=== PATIENT | female | born 1960 | race Caucasian/White ===

== ENCOUNTER 2022-05-23 17:23 | Emergency (ER) | payer MEDICAID, SELFPAY ==
--- NOTE | 2022-05-23 17:23 | W.ED.FALL ---
HPI - Fall General: Chief Complaint: Fall Stated Complaint: FALL Time Seen by Provider: 05/23/22 17:23 History of Present Illness: Ms. Tracey is a 61-year-old lady with complex past medical history presenting to the emergency department for fall with knee pain. She reports over the past number of weeks she has had increased bilateral upper and lower extremity weakness and stiffness. She does have a history of neck injury and has had surgery before. She was seen elsewhere and x-rays revealed a slipped disc . She was in her bathroom today when her leg on the left gave out and she fell to the ground. Denies loss of consciousness or head strike. She does endorse neck pain and left knee pain. She was on the ground for an hour or so. Intensity symptoms is moderate. No other specific changes in health, exacerbating, or alleviating factors identified. Onset (ago): minute(s) Fall from: standing Loss of consciousness: None Prolonged down time: no Context: other Location of injury: neck Location of injury - extremities: Left: knee Severity: moderate Quality: sharp and aching Review of Systems General: Reports: 10 or more systems reviewed and unremarkable except in HPI and below PFSH ED PFSH: Medical History Fall Generalized weakness Physical Exam Const: COMMON NORMALS: alert GENERAL APPEARANCE: cooperative and well developed HENMT: COMMON NORMALS: normocephalic and atraumatic HEAD & SCALP: normocephalic and atraumatic THROAT: posterior oropharynx normal OTHER: No roach signs or raccoon eyes. No hemotympanum. No otorrhea or rhinorrhea. Jaw alignment normal. Dentition baseline. No obvious bony step-offs. No septal hematoma. No evidence of ocular entrapment. Eye: COMMON NORMALS: conjunctivae normal CONJUNCTIVA: Yes conjunctivae normal SCLERA: sclerae normal Neck/C-Spine: COMMON NORMALS: supple GENERAL: Yes trachea midline OTHER: Mostly paraspinal tenderness to palpation. Resp: COMMON NORMALS: clear to auscultation bilaterally EFFORT & INSPECTION: Yes able to speak in complete sentences AUSCULTATION: clear to auscultation bilaterally Cardio: COMMON NORMALS: regular rate and regular rhythm RATE: regular rate RHYTHM: regular rhythm GI: COMMON NORMALS: Soft to palpation PALPATION: Yes Soft to palpation and No Tenderness to palpation present (GI) Extremity: NARRATIVE EXTREMITY EXAM: Left knee tender to palpation, no obvious deformity, CMS intact. GENERAL: Yes normal exam except as noted and No edema Neuro: COMMON NORMALS: moves all extremities SENSORIUM/ORIENTATION: Yes alert and No Orientation impaired Psych: COMMON NORMALS: mental status grossly normal and Normal thought process present THOUGHT PROCESS: Normal thought process present Course Vital Signs: Vital signs: Vital Signs Temperature 98.2 F 05/23/22 17:29 Pulse Rate 89 05/23/22 21:11 Respiratory Rate 20 H 05/23/22 21:11 Blood Pressure 154/87 05/23/22 21:11 Pulse Oximetry 98 05/23/22 21:11 Oxygen Delivery Me thod 05/23/22 17:29 MDM - Fall Medical Decision Making 61-year-old lady presenting with fall. Exam as above. Head to toe exam performed. Labs notable for no significant hematologic or metabolic abnormality to explain patient's generalized symptoms. CT and x-ray imaging are negative for acute pathology. Incidental findings were discussed with patient. Patient improved with analgesia administered during ED course. Most likely etiology of patient's symptoms is soft tissue injury secondary to fall with generalized weakness of unclear etiology. The results of ED evaluation were discussed with the patient including prescriptions and/or symptomatic cares (if applicable) including appropriate and responsible use, followup plan, and return precautions. The patient verbalized understanding and felt safe for discharge. Medical Records I reviewed the patient's medical records. Lab Data I reviewed the patient's lab results. 05/23/22 18:50 05/23/22 18:50 Radiology Impressions Cervical Spine CT 05/23/22 17:34 IMPRESSION: 1. No acute cervical spinal fracture. 2. C5-C6 anterior cervical spinal fusion changes. Degenerative changes with at least moderate spinal canal stenosis C4-C5 above the fusion which can be better characterized by MRI for follow-up. Head CT 05/23/22 17:34 IMPRESSION: No acute intracranial abnormality. Hip/Pelvis X-Ray 05/23/22 17:34 IMPRESSION: Degenerative changes. No acute injury. Knee X-Ray 05/23/22 17:34 IMPRESSION: 1. Degenerative changes. No acute injury. 2. Moderate knee joint effusion. Laboratory Results WBC 9.2 10^3/uL (4.0-10.0) 05/23/22 18:50 RBC 4.95 10^6/uL (4.1-5.3) 05/23/22 18:50 Hgb 13.3 g/dL (11.5-15.3) 05/23/22 18:50 Hct 43.8 % (37.0-47.0) 05/23/22 18:50 MCV 88.5 fl (81-99) 05/23/22 18:50 MCH 26.9 pg (28.0-34.0) L 05/23/22 18:50 MCHC 30.4 g/dL (30.0-36.0) 05/23/22 18:50 RDW 16.3 % (12.1-15.1) H 05/23/22 18:50 Plt Count 206 10^3/cmm (130-400) 05/23/22 18:50 MPV 11.0 fL (7.4-10.4) H 05/23/22 18:50 Neut % (Auto) 72.7 % 05/23/22 18:50 Lymph % (Auto) 15.9 % 05/23/22 18:50 Gall[place] % (Auto) 7.3 % 05/23/22 18:50 Eos % (Auto) 2.9 % 05/23/22 18:50 Baso % (Auto) 0.7 % 05/23/22 18:50 Neut # (Auto) 6.67 10^3/uL (1.8-7.7) 05/23/22 18:50 Lymph # (Auto) 1.5 10^3/uL (0.8-4.8) 05/23/22 18:50 [place] # (Auto) 0.7 10^3/uL (0.2-0.9) 05/23/22 18:50 Eos # (Auto) 0.3 10^3/uL (0.0-0.8) 05/23/22 18:50 Baso # (Auto) 0.1 10^3/uL (0.0-0.1) 05/23/22 18:50 Nucleated RBC % (auto) 0 % 05/23/22 18:50 Nucleated RBCs # 0.0 /100WBC 05/23/22 18:50 Sodium 142 mmol/L (136-145) 05/23/22 18:50 Potassium 4.9 mmol/L (3.5-5.1) 05/23/22 18:50 Chloride 104 mmol/L (98-107) 05/23/22 18:50 Carbon Dioxide 27 mmol/L (22-29) 05/23/22 18:50 Anion Gap 15.9 (5-19) 05/23/22 18:50 BUN 21 mg/dL (8-23) 05/23/22 18:50 Creatinine 0.9 mg/dL (0.5-0.9) 05/23/22 18:50 GFR Calculation 63.2 mL/min (90-130) L 05/23/22 18:50 Glucose 87 mg/dL (65-115) 05/23/22 18:50 Calculated Osmolality 296 mOsm/kg (285-295) H 05/23/22 18:50 Calcium 9.4 mg/dL (8.5-10.5) 05/23/22 18:50 Total Bilirubin 0.4 mg/dL (0.15-1.2) 05/23/22 18:50 AST 18 U/L (0-32) 05/23/22 18:50 ALT 19 U/L (0-33) 05/23/22 18:50 Alkaline Phosphatase 85 U/L (35-105) 05/23/22 18:50 Creatine Kinase 169 U/L (26-192) 05/23/22 18:50 Total Protein 7.4 g/dL (6.6-8.7) 05/23/22 18:50 Albumin 4.2 g/dL (3.5-5.2) 05/23/22 18:50 Globulin 3.2 g/dL (1.3-4.6) 05/23/22 18:50 Discharge Plan Discharge Patient Disposition: Home Clinical Impression: Fall, Knee joint pain, Generalized weakness Condition: Stable Prescriptions: New oxycodone 5 mg tablet 5 mg PO Q4H PRN (Reason: pain) Qty: 10 0RF No Action clonazepam 0.5 mg tablet 0.25 mg PO BID levothyroxine 75 mcg capsule 75 mcg PO DAILY escitalopram oxalate 10 mg tablet 10 mg PO DAILY meloxicam 7.5 mg tablet 7.5 mg PO DAILY aspirin [Adult Aspirin Regimen] 81 mg tablet,delayed release (DR/EC) 81 mg PO DAILY spironolactone 50 mg tablet 50 mg PO DAILY loratadine [Allergy Relief (loratadine)] 10 mg tablet 10 mg PO DAILY omeprazole 20 mg capsule,delayed release(DR/EC) 20 mg PO DAILY bupropion HCl 150 mg tablet extended release 24 hr 150 mg PO QAM Discharge Orders: Discharge ED (Routine); Ordered 05/23/22 Ordered By: Chema Ovalles Discharge Diet: Usual diet Discharge Activity: Resume usual activity Patient Instructions: Weakness (ED), Knee Pain (ED), Fall Prevention (ED), Opioid Safety Activity Restrictions/Additional Instructions: Thank you for visiting the emergency department. You were seen and evaluated for fall with knee pain. No acute internal injury was identified. Please follow-up with your primary care provider. You may use [id number] medications such as acetaminophen and ibuprofen for pain however please do not exceed the daily recommended dosage as listed on the packaging and please keep in mind that many namebrand medications contain the same active ingredients. Please avoid these medications if previously instructed to do so by another physician due to other underlying medical condition. I will prescribe oxycodone for pain uncontrolled by [id number] medications. Use these cautiously as discussed. Return to the emergency department for uncontrolled symptoms or anything else that you are concerned about and feel needs emergency department evaluation. Coding Level of Care Code ED [employer]
[2022-05-23 17:29] VITALS: BP 102/69; PULSE 70; RESP 19; TEMP 36.8; O2SAT 94; BMI 56.7
--- NOTE | 2022-05-23 17:34 | XRR_ITS ---
PROCEDURE INFORMATION: Exam: XR Left Hip Exam date and time: 05/23/2022 6:06 PM Age: 61 years old Clinical indication: Injury or trauma; Fall; Other: Pain; Additional info: Fall, pain TECHNIQUE: Imaging protocol: Radiologic exam of the left hip. Views: 2 or 3 views hip with pelvis when performed. COMPARISON: No relevant prior studies available. FINDINGS: Bones/joints: Mild joint space narrowing noted in the left hip. No acute fracture or dislocation. Soft tissues: Study limited by body habitus. XR/XR hip LT 2-3V wo/w pel* [id number] IMPRESSION: Degenerative changes. No acute injury.
--- NOTE | 2022-05-23 17:34 | CTR_ITS ---
PROCEDURE INFORMATION: Exam: CT Cervical Spine Without Contrast Exam date and time: 05/23/2022 5:43 PM Age: 61 years old Clinical indication: Injury or trauma; Fall; Blunt trauma; Prior surgery; Surgery type: Plate in c-sp TECHNIQUE: Imaging protocol: Computed tomography of the cervical spine without contrast. Radiation optimization: All CT scans at this facility use at least one of these dose optimization techniques: automated exposure control; mA and/or kV adjustment per patient size (includes targeted exams where dose is matched to clinical indication); or iterative reconstruction. REPORTING DATA: Count of CT and Cardiac NM exams in prior 12 months: This patient has received [address] and 0 known cardiac nuclear medicine studies in the 12 months prior to the current study. COMPARISON: No relevant prior studies available. RADIATION DOSE METRICS: Total DLP (mGy-cm): 728.9 FINDINGS: Bones/joints: Minimal anterolisthesis of C4 on C5 measuring 4 mm. C5-C6 anterior cervical interbody fusion. Multilevel degenerative disc disease is present with at least moderate stenosis of the spinal canal C4-C5 above the fusion. Lungs: Lung apices are normal. Soft tissues: Unremarkable. CT/CT cervical spin wo con* [id number] IMPRESSION: 1. No acute cervical spinal fracture. 2. C5-C6 anterior cervical spinal fusion changes. Degenerative changes with at least moderate spinal canal stenosis C4-C5 above the fusion which can be better characterized by MRI for follow-up.
--- NOTE | 2022-05-23 17:34 | XRR_ITS ---
PROCEDURE INFORMATION: Exam: XR Left Knee Exam date and time: 05/23/2022 5:57 PM Age: 61 years old Clinical indication: Injury or trauma; Fall; Other: Pain; Additional info: Fall, pain TECHNIQUE: Imaging protocol: Radiologic exam of the left knee. Views: 3 views. COMPARISON: No relevant prior studies available. FINDINGS: Bones/joints: Mild medial and patellofemoral compartment joint space narrowing. Moderate-sized knee joint effusion. Anatomic alignment. No acute displaced fracture. Soft tissues: Normal. XR/XR knee LT 3V* [id number] IMPRESSION: 1. Degenerative changes. No acute injury. 2. Moderate knee joint effusion.
--- NOTE | 2022-05-23 17:34 | CTR_ITS ---
PROCEDURE INFORMATION: Exam: CT Head Without Contrast Exam date and time: 05/23/2022 5:43 PM Age: 61 years old Clinical indication: Injury or trauma; Fall; Blunt trauma (contusions or hematomas) TECHNIQUE: Imaging protocol: Computed tomography of the head without contrast. Radiation optimization: All CT scans at this facility use at least one of these dose optimization techniques: automated exposure control; mA and/or kV adjustment per patient size (includes targeted exams where dose is matched to clinical indication); or iterative reconstruction. REPORTING DATA: Count of CT and Cardiac NM exams in prior 12 months: This patient has received [address] and 0 known cardiac nuclear medicine studies in the 12 months prior to the current study. COMPARISON: No relevant prior studies available. RADIATION DOSE METRICS: Total DLP (mGy-cm): 1149.83 FINDINGS: Brain: No acute infarct. No hemorrhage. Involutional changes of the brain, commensurate with age. No mass effect. Cerebral ventricles: No ventriculomegaly. Paranasal sinuses: Visualized sinuses are unremarkable. No fluid levels. Mastoid air cells: Visualized mastoid air cells are well aerated. Bones/joints: Unremarkable. No acute fracture. Soft tissues: Unremarkable. CT/CT head wo con* [id number] IMPRESSION: No acute intracranial abnormality.
[2022-05-23 18:45] VITALS: BP 112/64; PULSE 71; O2SAT 97
[2022-05-23 19:02] LABS: Basophils # 0.1 10^3/uL (0.0-0.1); Basophils % 0.7 %; Eosinophils # 0.3 10^3/uL (0.0-0.8); Eosinophils % 2.9 %; Hematocrit 43.8 % (37.0-47.0); Hemoglobin 13.3 g/dL (11.5-15.3); Lymphocytes # 1.5 10^3/uL (0.8-4.8); Lymphocytes % 15.9 %; Mean Corpuscular HGB Conc 30.4 g/dL (30.0-36.0); Mean Corpuscular Hemoglobin 26.9 pg (28.0-34.0); Mean Corpuscular Volume 88.5 fl (81-99); Monocytes # 0.7 10^3/uL (0.2-0.9); Monocytes % 7.3 %; Neutrophils # 6.67 10^3/uL (1.8-7.7); Neutrophils % 72.7 %; Nucleated Red Blood Cells % 0 %; Platelet Count 206 10^3/cmm (130-400); Red Blood Count 4.95 10^6/uL (4.1-5.3); Red Cell Distribution Width 16.3 % (12.1-15.1); White Blood Count 9.2 10^3/uL (4.0-10.0)
[2022-05-23] MEDS: morphine 4 mg/mL SDV 1 mL IVP (19:17)
[2022-05-23 19:31] LABS: Alanine Aminotransferase 19 U/L (0-33); Albumin Level 4.2 g/dL (3.5-5.2); Alkaline Phosphatase 85 U/L (35-105); Anion Gap 15.9 (5-19); Aspartate Amino Transferase 18 U/L (0-32); Blood Urea Nitrogen 21 mg/dL (8-23); Calcium 9.4 mg/dL (8.5-10.5); Carbon Dioxide 27 mmol/L (22-29); Chloride 104 mmol/L (98-107); Creatine Phosphokinase 169 U/L (26-192); Globulin 3.2 g/dL (1.3-4.6); Glomerular Filtration Rate 63.2 mL/min (90-130); Glucose 87 mg/dL (65-115); Osmolality Calculated 296 mOsm/kg (285-295); Potassium 4.9 mmol/L (3.5-5.1); Sodium 142 mmol/L (136-145); Total Bilirubin 0.4 mg/dL (0.15-1.2); Total Protein 7.4 g/dL (6.6-8.7)
[2022-05-23 21:11] VITALS: BP 154/87; PULSE 89; RESP 20; O2SAT 98
== END 2022-05-23 21:12 | disposition home or self-care (01) ==
PROVIDERS: Emergency Provider Emergency Medicine; PCP Family Medicine
DX: R53.1 Weakness (principal); M25.562 Pain in left knee; Z79.82 Long term (current) use of aspirin; W18.39XA Other fall on same level, initial encounter
CPT/HCPCS: 36415; 70450; 72125; 73502; 73562; 80053; 82550; 85025; 96374; 99285; J2270

== ENCOUNTER 2023-11-17 12:59 | Emergency (ER) | payer MEDICAID, SELFPAY ==
[2023-11-17 13:02] VITALS: BP 158/104; PULSE 82; RESP 18; TEMP 37; O2SAT 92; BMI 54.8
--- NOTE | 2023-11-17 13:09 | XR_ITS ---
WS: [id number] LEFT TIBIA-FIBULA 2 VIEWS HISTORY: wound COMPARISON: None available. No fracture, dislocation or joint abnormality. Mild soft tissue edema surrounding the lower extremity. No pockets of air identified. XR/XR tibia fibula LT 2V [id number] IMPRESSION: Mild diffuse soft tissue edema LEFT lower extremity. No fracture.
--- NOTE | 2023-11-17 13:11 | ED_ITS ---
HPI - General Adult 2 General: Chief complaint: Wound/Laceration Stated complaint: left leg pressure ulcer Time Seen by Provider: 11/17/23 13:01 Source: patient and EMS Mode of arrival: EMS Limitations: no limitations History of Present Illness: 62-year-old female states she been havin g a chronic wound to her left lower leg it has been there for roughly a year she states it had not improved after last round of antibiotics a few months ago states she has put some hydrogen peroxide on it and it seems to be worse. She states she had some slight increased erythema and drainage she denies any fever has minimal pain. Associated symptoms: Deny chest pain, dyspnea, headache(s), nausea, rash or vomiting Related Data Home Medications Medication Instructions Recorded Confirmed aspirin 81 mg tablet,delayed 81 mg PO DAILY 05/12/22 05/12/22 release (Adult Aspirin Regimen) bupropion HCl 150 mg 24 hr tablet, 150 mg PO QAM 05/12/22 05/12/22 extended release clonazepam 0.5 mg tablet 0.25 mg PO BID 05/12/22 05/12/22 escitalopram oxalate 10 mg tablet 10 mg PO DAILY 05/12/22 05/12/22 levothyroxine 75 mcg capsule 75 mcg PO DAILY 05/12/22 05/12/22 loratadine 10 mg tablet (Allergy 10 mg PO DAILY 05/12/22 05/12/22 Relief (loratadine)) meloxicam 7.5 mg tablet 7.5 mg PO DAILY 05/12/22 05/12/22 omeprazole 20 mg capsule,delayed 20 mg PO DAILY 05/12/22 05/12/22 release spironolactone 50 mg tablet 50 mg PO DAILY 05/12/22 05/12/22 Previous Rx's Medication Instructions Recorded oxycodone 5 mg tablet 5 mg PO Q4H PRN pain #10 tabs 05/23/22 clindamycin HCl 300 mg capsule 300 mg PO Q8H 7 days #21 caps 11/17/23 Allergies Allergy/AdvReac Type Severity Reaction Status Date / Time diazepam [From Valium] Allergy ADR/ALGY-Hy Verified 05/12/22 15:22 potension Influenza Virus Vaccines Allergy Unknown Verified 05/23/22 19:20 Penicillins Allergy ALGY-Hives Verified 05/12/22 15:22 tetanus toxoid, adsorbed Allergy Unknown Verified 05/23/22 19:20 tramadol Allergy Unknown Verified 05/23/22 19:20 Review of Systems 2 Const: Denies: fever(s), chills, body aches or change in appetite ENMT: Denies: throat pain or dental pain Card: Denies: chest pain Resp: Denies: dyspnea GI: Denies: abdominal pain, nausea, vomiting or diarrhea Musc: Denies: neck pain or back pain Skin/Breast: Reports: erythema; Denies: rash Neuro: Denies: headache(s) PFSH ED 2 PFSH: Medical History Generalized weakness Fall Physical Exam 2 Const: COMMON NORMALS: no acute distress, patient oriented x3 and healthy appearing HENMT: COMMON NORMALS: normocephalic and atraumatic HEAD & SCALP: n ormocephalic and atraumatic Neck/C-Spine: COMMON NORMALS: full ROM and supple Chest: COMMONS NORMALS: normal inspection of the chest Resp: COMMON NORMALS: normal respiratory effort Cardio: COMMON NORMALS: regular rate, regular rhythm and No murmurs present (Cardio) RATE: regular rate RHYTHM: regular rhythm Extremity: NARRATIVE EXTREMITY EXAM: Roughly 3 cm in her superficial wound to the left lower leg with slight erythema no drainage at this time Neuro: COMMON NORMALS: patient oriented x3, moves all extremities and no focal motor deficits Psych: COMMON NORMALS: mental status grossly normal, Normal thought process present and cooperative THOUGHT PROCESS: Normal thought process present Skin: COMMON NORMALS: no rashes or lesions noted and no wounds GENERAL SKIN EXAM: no rashes or lesions noted Course 2 Vital Signs: Vital signs: Vital Signs Temperature 98.6 F 11/17/23 13:02 Pulse Rate 71 11/17/23 13:53 Respiratory Rate 18 11/17/23 13:02 Blood Pressure 158/104 11/17/23 13:53 Pulse Oximetry 93 11/17/23 13:53 Oxygen Delivery Me thod Room Air 11/17/23 13:53 MDM - General Adult Medical Decision Making Patient presents for superficial ulcer to left lower leg with some mild cellulitis no signs of necrotizing fasciitis we will start patient on clindamycin we will get her follow-up with wound care she is return if worsening she understands agrees with plan Medical Records I reviewed the patient's medical records. Lab Data I reviewed the patient's lab results. 11/17/23 13:28 11/17/23 13:28 Radiology Impressions Tibia/Fibula X-Ray 11/17/23 13:09 IMPRESSION: Mild diffuse soft tissue edema LEFT lower extremity. No fracture. Laboratory Results WBC 8.13 10^3/uL (3.29-11.43) 11/17/23 13:28 RBC 4.27 10^6/uL (3.85-5.65) 11/17/23 13:28 Hgb 11.90 g/dL (11.27-16.99) 11/17/23 13:28 Hct 38.8 % (36-47) 11/17/23 13:28 MCV 90.9 fl (85-98) 11/17/23 13:28 MCH 27.9 pg (27-33) 11/17/23 13:28 MCHC 30.7 g/dL (30-55) 11/17/23 13:28 RDW 15.6 % (12.1-15.1) H 11/17/23 13:28 Plt Count 175 10^3/cmm (157-399) 11/17/23 13:28 MPV 10.9 fL (7.4-10.4) H 11/17/23 13:28 Neut % (Auto) 64.3 % 11/17/23 13:28 Lymph % (Auto) 21.6 % 11/17/23 13:28 [place] % (Auto) 10.3 % 11/17/23 13:28 Eos % (Auto) 2.6 % 11/17/23 13:28 Baso % (Auto) 0.7 % 11/17/23 13:28 Neut # (Auto) 5.22 10^3/uL (1.8-7.7) 11/17/23 13:28 Lymph # (Auto) 1.8 10^3/uL (0.8-4.8) 11/17/23 13:28 [place] # (Auto) 0.8 10^3/uL (0.2-0.9) 11/17/23 13:28 Eos # (Auto) 0.2 10^3/uL (0.0-0.8) 11/17/23 13:28 Baso # (Auto) 0.1 10^3/uL (0.0-0.1) 11/17/23 13:28 Nucleated RBC % (auto) 0 % 11/17/23 13:28 Nucleated RBCs # 0.0 /100WBC 11/17/23 13:28 ESR 46 mm/hr (0-15) H 11/17/23 13:28 Sodium 139 mmol/L (136-145) 11/17/23 13:28 Potassium 4.0 mmol/L (3.5-5.1) 11/17/23 13:28 Chloride 104 mmol/L (98-107) 11/17/23 13:28 Carbon Dioxide 25 mmol/L (22-29) 11/17/23 13:28 Anion Gap 14.0 (5-19) 11/17/23 13:28 BUN 17 mg/dL (8-23) 11/17/23 13:28 Creatinine 1.1 mg/dL (0.5-0.9) H 11/17/23 13:28 GFR Calculation 50.0 mL/min (90-130) L 11/17/23 13:28 Glucose 91 mg/dL (65-115) 11/17/23 13:28 Calculated Osmolality 289 mOsm/kg (285-295) 11/17/23 13:28 Calcium 8.8 mg/dL (8.5-10.5) 11/17/23 13:28 All radiology interpretation(s) finalized by discharge Discharge Plan Discharge Patient Disposition: Home Clinical Impression: Ulcer of left lower extremity, Cellulitis Condition: Stable Prescriptions: New clindamycin HCl 300 mg capsule 300 mg PO Q8H 7 Days Qty: 21 0RF No Action clonazepam 0.5 mg tablet 0.25 mg PO BID levothyroxine 75 mcg capsule 75 mcg PO DAILY escitalopram oxalate 10 mg tablet 10 mg PO DAILY meloxicam 7.5 mg tablet 7.5 mg PO DAILY aspirin [Adult Aspirin Regimen] 81 mg tablet,delayed release (DR/EC) 81 mg PO DAILY spironolactone 50 mg tablet 50 mg PO DAILY loratadine [Allergy Relief (loratadine)] 10 mg tablet 10 mg PO DAILY omeprazole 20 mg capsule,delayed release(DR/EC) 20 mg PO DAILY bupropion HCl 150 mg tablet extended release 24 hr 150 mg PO QAM oxycodone 5 mg tablet 5 mg PO Q4H PRN (Reason: pain) Qty: 10 0RF Discharge Orders: Discharge ED (Routine); Ordered 11/17/23 Ordered By: Kiah Kumar Referrals: Hannah Bueno DO [Primary Care Provider] - [facility], [Staff Physician] - 1-3 days Discharge Diet: Advance as tolerated Discharge Activity: Resume usual activity Patient Instructions: Cellulitis (ED), Acute Wound Care (ED) Coding Level of Care Code ED [employer]
[2023-11-17 13:43] LABS: Basophils # 0.1 10^3/uL (0.0-0.1); Basophils % 0.7 %; Eosinophils # 0.2 10^3/uL (0.0-0.8); Eosinophils % 2.6 %; Hematocrit 38.8 % (36-47); Lymphocytes # 1.8 10^3/uL (0.8-4.8); Lymphocytes % 21.6 %; Mean Corpuscular HGB Conc 30.7 g/dL (30-55); Mean Corpuscular Hemoglobin 27.9 pg (27-33); Mean Corpuscular Volume 90.9 fl (85-98); Mean Platelet Volume 10.9 fL (7.4-10.4); Monocytes # 0.8 10^3/uL (0.2-0.9); Monocytes % 10.3 %; Neutrophils # 5.22 10^3/uL (1.8-7.7); Neutrophils % 64.3 %; Nucleated Red Blood Cells % 0 %; Platelet Count 175 10^3/cmm (157-399); Red Blood Count 4.27 10^6/uL (3.85-5.65); Red Cell Distribution Width 15.6 % (12.1-15.1); White Blood Count 8.13 10^3/uL (3.29-11.43)
[2023-11-17] MEDS: clindamycin 600 MG/50 ML PREMIX 100 MG IV (13:49)
[2023-11-17] MEDS: HYDROcodone-acetaminophen 5-325 mg Tablet 1 TAB PO (13:51)
[2023-11-17 13:52] LABS: Blood Urea Nitrogen 17 mg/dL (8-23); Calcium 8.8 mg/dL (8.5-10.5); Carbon Dioxide 25 mmol/L (22-29); Chloride 104 mmol/L (98-107); Glucose 91 mg/dL (65-115); Osmolality Calculated 289 mOsm/kg (285-295); Sodium 139 mmol/L (136-145)
[2023-11-17 13:53] VITALS: BP 158/104; PULSE 71; O2SAT 93
[2023-11-17 13:53] LABS: Erythrocyte Sedimentation Rate 46 mm/hr (0-15)
[2023-11-17 13:54] LABS: Creatinine Clr Calc Pharmacy 68.9158
--- NOTE | 2023-11-17 15:02 | DCPLANNER ---
messaged wound care for er f/u
[2023-11-17 16:11] VITALS: BP 160/92; PULSE 63; O2SAT 97
== END 2023-11-17 16:12 | disposition home or self-care (01) ==
PROVIDERS: Emergency Provider Emergency Medicine; PCP Family Medicine
DX: L97.821 Non-pressure chronic ulcer of other part of left lower leg limited to breakdown of skin (principal); L03.116 Cellulitis of left lower limb; Z79.82 Long term (current) use of aspirin
CPT/HCPCS: 36415; 73590; 80048; 85025; 85651; 96374; 99284; J3490

== ENCOUNTER → 2023-12-01 13:03 | Outpatient (BNVA) | payer MEDICAID, SELFPAY | PROVIDERS: PCP Family Medicine; Visit Provider Thoracic Surgery (Cardiothoracic Vascular Surgery) | DX: I96 Gangrene, not elsewhere classified (principal); I89.0 Lymphedema, not elsewhere classified; L97.822 Non-pressure chronic ulcer of other part of left lower leg with fat layer exposed | CPT/HCPCS: 11042 ==

== ENCOUNTER → 2023-12-08 10:44 | Outpatient (BNVA) | payer MEDICAID, SELFPAY | PROVIDERS: PCP Family Medicine; Visit Provider Thoracic Surgery (Cardiothoracic Vascular Surgery) | DX: I89.0 Lymphedema, not elsewhere classified (principal); I96 Gangrene, not elsewhere classified; L97.821 Non-pressure chronic ulcer of other part of left lower leg limited to breakdown of skin | CPT/HCPCS: 97597; 97598 ==

== ENCOUNTER → 2023-12-15 09:49 | Outpatient (BNVA) | payer MEDICAID, SELFPAY | PROVIDERS: PCP Family Medicine; Visit Provider Thoracic Surgery (Cardiothoracic Vascular Surgery) | DX: I96 Gangrene, not elsewhere classified (principal); I89.0 Lymphedema, not elsewhere classified; L97.821 Non-pressure chronic ulcer of other part of left lower leg limited to breakdown of skin | CPT/HCPCS: 97597; 97598 ==

== ENCOUNTER → 2023-12-22 10:09 | Outpatient (BNVA) | payer MEDICAID, SELFPAY | PROVIDERS: PCP Family Medicine; Visit Provider Thoracic Surgery (Cardiothoracic Vascular Surgery) | DX: I96 Gangrene, not elsewhere classified (principal); I89.0 Lymphedema, not elsewhere classified; L97.821 Non-pressure chronic ulcer of other part of left lower leg limited to breakdown of skin | CPT/HCPCS: 97597; 97598; 97605; A6237; A6250 ==

== ENCOUNTER → 2023-12-25 11:09 | Outpatient (BNVA) | payer MEDICAID, SELFPAY | PROVIDERS: PCP Family Medicine; Visit Provider Thoracic Surgery (Cardiothoracic Vascular Surgery) | DX: I96 Gangrene, not elsewhere classified (principal); I89.0 Lymphedema, not elsewhere classified; L97.821 Non-pressure chronic ulcer of other part of left lower leg limited to breakdown of skin | CPT/HCPCS: 97597; 97598; 97606; A6237; A6250 ==

== ENCOUNTER → 2023-12-29 08:37 | Outpatient (BNVA) | payer MEDICAID, SELFPAY | PROVIDERS: PCP Family Medicine; Visit Provider Thoracic Surgery (Cardiothoracic Vascular Surgery) | DX: I96 Gangrene, not elsewhere classified (principal); L97.821 Non-pressure chronic ulcer of other part of left lower leg limited to breakdown of skin | CPT/HCPCS: 97597; 97598 ==

== ENCOUNTER → 2024-01-05 08:30 | Outpatient (BNVA) | payer MEDICAID, SELFPAY | PROVIDERS: PCP Family Medicine; Visit Provider Thoracic Surgery (Cardiothoracic Vascular Surgery) | DX: I96 Gangrene, not elsewhere classified (principal); I89.0 Lymphedema, not elsewhere classified; L97.821 Non-pressure chronic ulcer of other part of left lower leg limited to breakdown of skin | CPT/HCPCS: 97597; 97598; A6237; A6250 ==

== ENCOUNTER 2024-01-07 18:17 | Emergency (ER) | payer MEDICAID, SELFPAY ==
[2024-01-07 18:19] VITALS: BP 163/99; PULSE 91; RESP 18; TEMP 36.8; O2SAT 96; BMI 58.5
[2024-01-07] MEDS: oxyCODONE-APAP 10-325 mg Tablet 1 TAB PO (19:29)
--- NOTE | 2024-01-07 19:30 | ED_ITS ---
HPI - Wound/Laceration 2 General: Chief Complaint: Wound/Laceration Stated Complaint: left lower leg wound Time Seen by Provider: 01/07/24 18:29 History of Present Illness: Patient presents to the ER with open wound on her left calf with a wound VAC in place. She said the wound VAC is malfunctioning and her fluid is draining around. She does have appointment with the wound clinic tomorrow. Leg was bandaged up by EMS. They brought her here to be evaluated. Patient has no other complaints. Patient says she did not take her pain medicine tonight because ambulance got there too soon, Related Data Home Medications Medication Instructions Recorded Confirmed aspirin 81 mg tablet,delayed 81 mg PO DAILY 05/12/22 05/12/22 release (Adult Aspirin Regimen) bupropion HCl 150 mg 24 hr tablet, 150 mg PO QAM 05/12/22 05/12/22 extended release clonazepam 0.5 mg tablet 0.25 mg PO BID 05/12/22 05/12/22 escitalopram oxalate 10 mg tablet 10 mg PO DAILY 05/12/22 05/12/22 levothyroxine 75 mcg capsule 75 mcg PO DAILY 05/12/22 05/12/22 loratadine 10 mg tablet (Allergy 10 mg PO DAILY 05/12/22 05/12/22 Relief (loratadine)) meloxicam 7.5 mg tablet 7.5 mg PO DAILY 05/12/22 05/12/22 omeprazole 20 mg capsule,delayed 20 mg PO DAILY 05/12/22 05/12/22 release spironolactone 50 mg tablet 50 mg PO DAILY 05/12/22 05/12/22 Previous Rx's Medication Instructions Recorded oxycodone 5 mg tablet 5 mg PO Q4H PRN pain #10 tabs 05/23/22 hydrocodone 5 mg-acetaminophen 325 1 tab PO BID PRN pain 7 days #14 12/08/23 mg tablet tabs sulfamethoxazole 800 1 tab PO BID 10 days #20 tabs 12/08/23 mg-trimethoprim 160 mg tablet (Bactrim DS) Allergies Allergy/AdvReac Type Severity Reaction Status Date / Time diazepam [From Valium] Allergy ADR/ALGY-Hy Verified 05/12/22 15:22 potension Influenza Virus Vaccines Allergy Unknown Verified 05/23/22 19:20 Penicillins Allergy ALGY-Hives Verified 05/12/22 15:22 tetanus toxoid, adsorbed Allergy Unknown Verified 05/23/22 19:20 tramadol Allergy Unknown Verified 05/23/22 19:20 Review of Systems 2 General: Reports: 10 or more systems reviewed and unremarkable except in HPI and below PFSH ED 2 PFSH: Medical History Generalized weakness Fall Physical Exam 2 Const: COMMON NORMALS: no acute distress, average body habitus, patient oriented x3, no limitations, healthy appearing, alert and well nourished HENMT: COMMON NORMALS: normocephalic, atraumatic, hearing grossly normal bilaterally, external ears normal, Normal external nose present and moist oral mucous membranes HEAD & SCALP: normocephalic and atraumatic NOSE: Normal external nose present EXTERNAL EAR: Yes external ears normal Chest: COMMONS NORMALS: normal inspection of the chest and normal palpation of entire chest wall Neuro: COMMON NORMALS: patient oriented x3 SENSORIUM/ORIENTATION: Yes alert Skin: NARRATIVE SKIN EXAM: Large wound on back of left posterior calf region wound tracking in place partially, quite odiferous, no lory purulent drainage, Course 2 Vital Signs: Vital signs: Vital Signs Temperature 98.3 F 01/07/24 18:19 Pulse Rate 62 01/07/24 21:15 Respiratory Rate 18 01/07/24 21:15 Blood Pressure 150/67 01/07/24 21:15 Pulse Oximetry 99 01/07/24 21:15 Oxygen Delivery Me thod Room Air 01/07/24 21:15 MDM - Wound/Laceration Medical Decision Making Wound VAC was removed, left leg was severely odiferous, lab work was obtained which revealed a normal white count, no significant abnormalities, wound was redressed. Patient will be discharged and told to follow-up with wound care tomorrow. Medical Records I reviewed the patient's medical records. Lab Data I reviewed the patient's lab results. 01/07/24 21:39 01/07/24 21:39 Laboratory Results WBC 7.99 10^3/uL (3.29-11.43) 01/07/24 21:39 RBC 4.10 10^6/uL (3.85-5.65) 01/07/24 21:39 Hgb 11.00 g/dL (11.27-16.99) L 01/07/24 21:39 Hct 37.5 % (36-47) 01/07/24 21:39 MCV 91.5 fl (85-98) 01/07/24 21:39 MCH 26.8 pg (27-33) L 01/07/24 21:39 MCHC 29.3 g/dL (30-55) L 01/07/24 21:39 RDW 15.7 % (12.1-15.1) H 01/07/24 21:39 Plt Count 244 10^3/cmm (157-399) 01/07/24 21:39 MPV 10.1 fL (7.4-10.4) 01/07/24 21:39 Neut % (Auto) 61.9 % 01/07/24 21:39 Lymph % (Auto) 20.8 % 01/07/24 21:39 Yell % (Auto) 8.8 % 01/07/24 21:39 Eos % (Auto) 7.1 % 01/07/24 21:39 Baso % (Auto) 0.8 % 01/07/24 21:39 Neut # (Auto) 4.95 10^3/uL (1.8-7.7) 01/07/24 21:39 Lymph # (Auto) 1.7 10^3/uL (0.8-4.8) 01/07/24 21:39 Yell # (Auto) 0.7 10^3/uL (0.2-0.9) 01/07/24 21:39 Eos # (Auto) 0.6 10^3/uL (0.0-0.8) 01/07/24 21:39 Baso # (Auto) 0.1 10^3/uL (0.0-0.1) 01/07/24 21:39 Nucleated RBC % (auto) 0 % 01/07/24 21: Nucleated RBCs # 0.0 /100WBC 01/07/24 21:39 Sodium 138 mmol/L (136-145) 01/07/24 21:39 Potassium 4.3 mmol/L (3.5-5.1) 01/07/24 21:39 Chloride 101 mmol/L (98-107) 01/07/24 21:39 Carbon Dioxide 26 mmol/L (22-29) 01/07/24 21:39 Anion Gap 15.3 (5-19) 01/07/24 21:39 BUN 18 mg/dL (8-23) 01/07/24 21:39 Creatinine 1.2 mg/dL (0.5-0.9) H 01/07/24 21:39 GFR Calculation 45.1 mL/min (90-130) L 01/07/24 21:39 Glucose 102 mg/dL (65-115) 01/07/24 21:39 Calculated Osmolality 288 mOsm/kg (285-295) 01/07/24 21:39 Lactic Acid 1.0 mmol/L (0.5-2.2) 01/07/24 21:39 Calcium 8.4 mg/dL (8.5-10.5) L 01/07/24 21:39 Total Bilirubin 0.2 mg/dL (0.15-1.2) 01/07/24 21:39 AST 12 U/L (0-32) 01/07/24 21:39 ALT 10 U/L (0-33) 01/07/24 21:39 Alkaline Phosphatase 82 U/L (35-105) 01/07/24 21:39 Total Protein 7.0 g/dL (6.6-8.7) 01/07/24 21:39 Albumin 3.7 g/dL (3.5-5.2) 01/07/24 21:39 Globulin 3.3 g/dL (1.3-4.6) 01/07/24 21:39 Procalcitonin 0.07 ng/mL (0-0.5) 01/07/24 21:39 No radiology studies performed this visit Discharge Plan Discharge Patient Disposition: Home Clinical Impression: Encounter for management of wound VAC, Chronic wound of extremity Condition: Stable Prescriptions: No Action clonazepam 0.5 mg tablet 0.25 mg PO BID levothyroxine 75 mcg capsule 75 mcg PO DAILY escitalopram oxalate 10 mg tablet 10 mg PO DAILY meloxicam 7.5 mg tablet 7.5 mg PO DAILY aspirin [Adult Aspirin Regimen] 81 mg tablet,delayed release (DR/EC) 81 mg PO DAILY spironolactone 50 mg tablet 50 mg PO DAILY loratadine [Allergy Relief (loratadine)] 10 mg tablet 10 mg PO DAILY omeprazole 20 mg capsule,delayed release(DR/EC) 20 mg PO DAILY bupropion HCl 150 mg tablet extended release 24 hr 150 mg PO QAM sulfamethoxazole-trimethoprim [Bactrim DS] 800-160 mg tablet 1 tab PO BID 10 Days Qty: 20 0RF hydrocodone-acetaminophen 5-325 mg tablet 1 tab PO BID PRN (Reason: pain) 7 Days Qty: 14 0RF oxycodone 5 mg tablet 5 mg PO Q4H PRN (Reason: pain) Qty: 10 0RF Discharge Orders: Discharge ED (Routine); Ordered 01/07/24 Ordered By: Bao Nunez Referrals: Hannah Bueno DO [Primary Care Provider] - 1 week Patient Instructions: Wound Care (General) Activity Restrictions/Additional Instructions: Your lab work was essentially unremarkable, your white blood cell count was not elevated. We did take the wound VAC off and placed a normal dressing in its place. Please keep in place until you see the wound clinic at your normal scheduled appointment tomorrow. Tonight please try to stay in your bed and not in your wheelchair as this will help reduce the swelling in your extremity and take pressure off of the wound on the back your left leg.. Coding Level of Care Code ED [employer]
[2024-01-07] MEDS: lidocaine 2% viscous 15 mL UDC TOPICAL (19:40)
[2024-01-07 19:42] VITALS: BP 132/108; PULSE 90; RESP 18; O2SAT 96
[2024-01-07 21:15] VITALS: BP 150/67; PULSE 62; RESP 18; O2SAT 99
[2024-01-07 21:53] LABS: Basophils # 0.1 10^3/uL (0.0-0.1); Basophils % 0.8 %; Eosinophils # 0.6 10^3/uL (0.0-0.8); Eosinophils % 7.1 %; Hematocrit 37.5 % (36-47); Lymphocytes # 1.7 10^3/uL (0.8-4.8); Lymphocytes % 20.8 %; Mean Corpuscular HGB Conc 29.3 g/dL (30-55); Mean Corpuscular Hemoglobin 26.8 pg (27-33); Mean Corpuscular Volume 91.5 fl (85-98); Mean Platelet Volume 10.1 fL (7.4-10.4); Monocytes # 0.7 10^3/uL (0.2-0.9); Monocytes % 8.8 %; Neutrophils # 4.95 10^3/uL (1.8-7.7); Neutrophils % 61.9 %; Nucleated Red Blood Cells % 0 %; Platelet Count 244 10^3/cmm (157-399); Red Cell Distribution Width 15.7 % (12.1-15.1); White Blood Count 7.99 10^3/uL (3.29-11.43)
[2024-01-07 22:12] LABS: Alanine Aminotransferase 10 U/L (0-33); Albumin Level 3.7 g/dL (3.5-5.2); Alkaline Phosphatase 82 U/L (35-105); Anion Gap 15.3 (5-19); Aspartate Amino Transferase 12 U/L (0-32); Blood Urea Nitrogen 18 mg/dL (8-23); Calcium 8.4 mg/dL (8.5-10.5); Carbon Dioxide 26 mmol/L (22-29); Chloride 101 mmol/L (98-107); Creatinine Clr Calc Pharmacy 65.0191; Globulin 3.3 g/dL (1.3-4.6); Glomerular Filtration Rate 45.1 mL/min (90-130); Glucose 102 mg/dL (65-115); Osmolality Calculated 288 mOsm/kg (285-295); Potassium 4.3 mmol/L (3.5-5.1); Sodium 138 mmol/L (136-145); Total Bilirubin 0.2 mg/dL (0.15-1.2)
[2024-01-07 22:19] LABS: Procalcitonin 0.07 ng/mL (0-0.5)
[2024-01-07 23:33] VITALS: BP 114/66; PULSE 73; RESP 18; O2SAT 99
== END 2024-01-07 23:35 | disposition home or self-care (01) ==
PROVIDERS: Emergency Provider Emergency Medicine; PCP Family Medicine
DX: Z48.01 Encounter for change or removal of surgical wound dressing (principal); Z79.82 Long term (current) use of aspirin; S89.92XA Unspecified injury of left lower leg, initial encounter; X58.XXXA Exposure to other specified factors, initial encounter
CPT/HCPCS: 36415; 80053; 83605; 84145; 85025; 99283

== ENCOUNTER → 2024-01-12 08:48 | Outpatient (BNVA) | payer MEDICARE, MEDICAID, SELFPAY | PROVIDERS: PCP Family Medicine; Visit Provider Thoracic Surgery (Cardiothoracic Vascular Surgery) | DX: I96 Gangrene, not elsewhere classified (principal); I89.0 Lymphedema, not elsewhere classified; L97.821 Non-pressure chronic ulcer of other part of left lower leg limited to breakdown of skin | CPT/HCPCS: 97597; 97598; A6248 ==

== ENCOUNTER → 2024-01-18 13:42 | Outpatient (BNVA) | payer MEDICARE, MEDICAID, SELFPAY | PROVIDERS: PCP Family Medicine; Visit Provider Thoracic Surgery (Cardiothoracic Vascular Surgery) | DX: I96 Gangrene, not elsewhere classified (principal); I89.0 Lymphedema, not elsewhere classified; L97.821 Non-pressure chronic ulcer of other part of left lower leg limited to breakdown of skin | CPT/HCPCS: 97597; 97598 ==

== ENCOUNTER → 2025-01-21 10:24 | Outpatient (BNVA) | payer MEDICARE, MEDICAID, SELFPAY | PROVIDERS: PCP Family Medicine | DX: R39.9 Unspecified symptoms and signs involving the genitourinary system (principal); R30.0 Dysuria | CPT/HCPCS: 81000; 87077; 87086; 87184 ==